=== PATIENT | male | born 1955 | race Caucasian/White ===

== ENCOUNTER → 2018-07-12 | Outpatient (CLI) | payer OTHER ==
[2018-07-12 13:48] LABS: Blood Urea Nitrogen 15 mg/dL (9-20)
--- NOTE | 2018-07-12 14:44 | CT ---
EXAMINATION TYPE: CT angio chest DATE OF EXAM: 07/12/2018 COMPARISON: None HISTORY: Thoracic aortic aneurysm. CT DLP: 268 mGycm CONTRAST: CTA thoracic aorta with 3-D reconstruction is performed and with IV Contrast, patient injected with 1 00 mL of Isovue 370. Contrast CTA of the thoracic aorta was performed from the lung apex through the upper abdomen. 3D re construction imaging obtained at a separate workstation. CT Chest: THORACIC AORTA: No evidence for thoracic aortic aneurysm. Mild atheromatous changes seen. There is n o evidence for dissection or periaortic collection. LUNGS: The lungs are clear and free of infiltrate or atelectasis. No pulmonary nodule or mass is det ected. No pleural effusion or CT evidence of interstitial lung disease. MEDIASTINUM: No evidence for mediastinal hematoma. The heart is not enlarged. No evidence for med iastinal mass or adenopathy. HILAR STRUCTURES: No evidence for mass. No hilar adenopathy is appreciated. OTHER: No significant abnormality. IMPRESSION- 1. No evidence for thoracic aortic.
== END | disposition home or self-care (01) ==
LOC: RADCTMAIN 12:59
PROVIDERS: ATTEND Nurse Practitioner Acute Care
DX: I71.2 Thoracic aortic aneurysm, without rupture (principal)
CPT/HCPCS: 82565; 84520; 71275; 36415; Q9967

== ENCOUNTER → 2019-09-24 | Outpatient (CLI) | payer OTHER ==
--- NOTE | 2019-09-24 11:18 | CTL ---
EXAMINATION TYPE: CT Low Dose Lung DATE OF EXAM ORDERED: 09/24/2019 HISTORY: . Lung cancer screening CT DLP: [address] CTDI: 2.9 mGy Automated exposure control for dose reduction was used. SCREENING VISIT: Initial COMPARISON: CTA 07/12/2018 TECHNIQUE: Low dose computed tomography scan was performed through the chest at 1 mm thick sections a nd reconstructed images in the coronal plane at [address] DIAGNOSTIC QUALITY: Satisfactory FINDINGS: LUNG NODULES: None. LUNGS: COPD: Severity: None Fibrosis: Severity: None Lymph nodes: None Other findings: None RIGHT PLEURAL SPACE: Effusion: None Calcification: None Thickening: None Pneumothorax: None LEFT PLEURAL SPACE: Effusion: None Calcification: None Thickening: None Pneumothorax: None HEART: Heart Size: Normal Coronary calcification: Mild Pericardial effusion: None OTHER FINDINGS: Upper abdomen: Postsurgical changes right nephrectomy. Bony thorax: Normal Supraclavicular region: Normal Other: Ascending thoracic aorta at the level the main pulmonary artery measures 3.7 cm. The main pul monary artery at the bifurcation measures 2.6 cm. IMPRESSION: 1. Negative CT chest FOLLOW UP CT CHEST RECOMMENDATION: Low dose screening in [address] LUNG RAD: 1
== END | disposition home or self-care (01) ==
LOC: RADCTMAIN 08:12
DX: Z12.2 Encounter for screening for malignant neoplasm of respiratory organs (principal); F17.210 Nicotine dependence, cigarettes, uncomplicated

== ENCOUNTER 2020-12-29 13:22 | Emergency (ER) | payer OTHER, MEDICARE ==
[2020-12-29 13:41] VITALS: TEMP 97.8
[2020-12-29] MEDS ORDERED: AMOXIC-POT CLAV 875MG STARTER PACK 2 TAB BTL PO STA (16:50)
--- NOTE | 2020-12-29 16:56 | ED ---
General Adult HPI - General Chief complaint: Skin/Abscess/Foreign Body Stated complaint: R side cheek pus inside mouth Time Seen by Provider: 12/29/20 16:43 Source: patient, RN notes reviewed, old records reviewed Mode of arrival: ambulatory Limitations: no limitations - History of Present Illness Initial comments: 65-year-old male with right facial swelling, tooth pain. Symptoms haven't present for 2 days. Patient has no systemic symptoms. No fever. He's had a similar episode to this in the past which responded well to antibiotics. Is able to eat and drink. He did report some purulent drainage from his right upper molar. Patient denies difficulty breathing or difficulty eating. - Related Data Previous Rx's Medication Instructions Recorded Amoxicillin/Potassium Clav 1 tab PO Q12HR 14 Days #28 tab 12/29/20 [Augmentin 875-125 Tablet] Allergies Allergy/AdvReac Type Severity Reaction Status Date / Time hydromorphone [From Dilaudid] Allergy Anaphylaxis Verified 12/29/20 13:41 Review of Systems ROS Statement: Those systems with pertinent positive or pertinent negative responses have been documented in the HPI. ROS Other: All systems not noted in ROS Statement are negative. Past Medical History Past Medical History: Hyperlipidemia, Hypertension, Renal Disease Additional Past Medical History / Comment(s): chronic neck and back pain History of Any Multi-Drug Resistant Organisms: None Reported Additional Past Surgical History / Comment(s): kidney removed Past Psychological History: No Psychological Hx Reported Smoking Status: Current every day smoker Past Alcohol Use History: Occasional Past Drug Use History: None Reported General Exam Limitations: no limitations General appearance: alert, in no apparent distress Head exam: Present: atraumatic, normocephalic Eye exam: Present: normal appearance, PERRL ENT exam: Present: other (Minimal right upper or facial swelling. No fluctuance or induration. There is a molar on the upper right with a abscess which is freely draining. There is tenderness to percussion over this tooth.) Neck exam: Present: normal inspection. Absent: tenderness, meningismus Respiratory exam: Present: normal lung sounds bilaterally. Absent: respiratory distress Cardiovascular Exam: Present: regular rate, normal rhythm GI/Abdominal exam: Present: soft. Absent: distended, tenderness Extremities exam: Present: normal inspection, normal capillary refill. Absent: pedal edema Neurological exam: Present: alert, oriented X3, CN II-XII intact. Absent: motor sensory deficit Skin exam: Present: warm, dry, intact. Absent: cyanosis, diaphoretic Course Vital Signs 12/29/20 13:37 Temperature 97.8 F Pulse Rate 91 Respiratory 20 Rate Blood Pressure 150/98 O2 Sat by Pulse 96 Oximetry Medical Decision Making - Medical Decision Making 65-year-old male with right upper molar tooth abscess, facial swelling. Patient is well-appearing, no trismus. No fever. He does have a freely draining apical abscess in the right upper molar. There is some facial cellulitis, no drainable abscess within the soft tissue of the cheek itself. Patient started on Augmentin and he will follow-up with his dentist. He is given strict return parameters. Disposition Clinical Impression: Abscessed tooth, Facial cellulitis Disposition: HOME SELF-CARE Condition: Good Instructions (If sedation given, give patient instructions): Dental Abscess (ED) Additional Instructions: Please return with development of fever, worsening symptoms. Please follow up with your dentist. Prescriptions: Amoxicillin/Potassium Clav [Augmentin 875-125 Tablet] 1 tab PO Q12HR 14 Days #28 tab Is patient prescribed a controlled substance at d/c from ED?: No Referrals: [facility],Clinic [Primary Care Provider] - 1-2 days Time of Disposition: 16:53
[2020-12-29 17:10] VITALS: BP 141/79; PULSE 79; RESP 18
== END 2020-12-29 17:09 | disposition home or self-care (01) ==
LOC: EC 13:22
DX: K04.7 Periapical abscess without sinus (principal); L03.211 Cellulitis of face; I10 Essential (primary) hypertension; E78.5 Hyperlipidemia, unspecified; F17.200 Nicotine dependence, unspecified, uncomplicated
CPT/HCPCS: 99283

== ENCOUNTER → 2021-04-23 | Outpatient (CLI) | payer OTHER ==
--- NOTE | 2021-04-23 11:58 | CTL ---
EXAMINATION TYPE: CT Low Dose Lung DATE OF EXAM ORDERED: 04/23/2021 HISTORY: 65-year-old male Personal history of tobacco use. Lung cancer screening CT DLP: 101.[address] CTDI: 2.8 mGy Automated exposure control for dose reduction was used. SCREENING VISIT: One and a half years from prior screening COMPARISON: 09/24/2019 TECHNIQUE: Low dose computed tomography scan was performed through the chest with coronal and sagitta l reconstructions. CT DIAGNOSTIC QUALITY: Satisfactory FINDINGS: Heart normal size without pericardial effusion. Scattered three-vessel coronary calcifications are pr esent. Ascending aorta ectatic and 3.8 cm, unchanged. Bovine configuration to the aortic arch. There is dire ct takeoff of the left vertebral artery directly from the aortic arch. Ectatic lower descending thora cic aorta 2.6 cm. Stable scattered nonenlarged mediastinal lymph nodes. Mild centrilobular emphysema. Mild diffuse bronchial wall thickening. There is strandy atelectasis o r scarring in the lower lungs. Some scattered mild paraseptal emphysema also noted. No consolidation or pleural effusion. Stable 2 mm subpleural pulmonary nodule anterior right upper lobe, axial image 60. Some focal endobronchial opacification within the posterior segment right upper lobe bronchus, axial image 106 measuring 7 mm. No consolidation or pleural effusion. Surgical clips at the right nephrectomy bed. Bones: Stable mild degenerative disc disease and endplate Schmorl's nodes lower thoracic spine. IMPRESSION: 1. Lungs RADS Category 4A ( Probably suspicious, 5-15% chance of malignancy). New 7 mm endobronchial nodule posterior segment right upper lobe bronchus. This may represent an area of mucous plugging. Sh ort interval follow-up recommended to reassess and exclude a small early endobronchial lesion. 2. COPD with mild emphysema. CT LUNG RAD AND CT CHEST RECOMMENDATION: Lung-Rad 4A Suspicious: Follow-up 3 month LDCT or PET/CT may be used when there is a > 8 mm solid component.
== END | disposition home or self-care (01) ==
LOC: RADCTMAIN 07:10
DX: Z12.2 Encounter for screening for malignant neoplasm of respiratory organs (principal); J44.9 Chronic obstructive pulmonary disease, unspecified; J43.9 Emphysema, unspecified
CPT/HCPCS: 71271

== ENCOUNTER → 2021-07-20 | Outpatient (CLI) | payer OTHER ==
[2021-07-20 12:34] LABS: African American GFR (CKD) >90 (>60 ml/min/1.73 sqM); Blood Urea Nitrogen 16 mg/dL (9-20); Non-African American GFR(CKD) 88 (>60 ml/min/1.73 sqM)
--- NOTE | 2021-07-20 14:01 | CT ---
EXAMINATION TYPE: CT chest w con DATE OF EXAM: 07/20/2021 COMPARISON: Low-dose lung screening CT April 23, 2021 and older CTs HISTORY: Previous abnormal exam lung stephens CT DLP: 309.6 mGycm. Automated Exposure Control for Dose Reduction was Utilized. TECHNIQUE: CT scan of the thorax is performed following with IV Contrast, patient injected with 100 ml mL of Isovue 300. FINDINGS: LUNGS: Mild underlying emphysematous changes redemonstrated. Interval clearance of 7 mm nodular opac ity posterior right upper lung bronchus axial image 25 likely reflecting mucous plugging given the in terval complete resolution. No new greater than 5 mm pulmonary nodules or masses. Mild bibasilar line ar scarring and/or atelectasis. There is no pleural effusion or pneumothorax seen. The tracheobronch ial tree is patent. MEDIASTINUM: There are no greater than 1 cm hilar or mediastinal lymph nodes. No cardiomegaly or pe ricardial effusion is seen. 4 vessel origin from aortic arch which is normal variant. OTHER: Right kidney suspected surgically absent. Exaggerated thoracic kyphosis with mild multilevel s purring. IMPRESSION: Interval resolution of 7 mm endobronchial lesion consistent with resolved mucous plugging . Mild emphysematous change without acute pulmonary process or suspicious greater than 5 mm pulmonary nodule.
== END | disposition home or self-care (01) ==
LOC: RADCTMAIN 11:49
PROVIDERS: ATTEND Internal Medicine
DX: R91.8 Other nonspecific abnormal finding of lung field (principal)
CPT/HCPCS: 82565; 84520; 71260; 36415; Q9967

== ENCOUNTER 2021-12-08 08:56 | Emergency (ER) | payer MEDICARE, OTHER ==
[2021-12-08 09:12] VITALS: BP 175/96; PULSE 76; RESP 18; TEMP 97.2
--- NOTE | 2021-12-08 09:50 | ED ---
General Adult HPI - General Chief complaint: Skin/Abscess/Foreign Body Stated complaint: Rash Time Seen by Provider: 12/08/21 09:13 Source: patient, RN notes reviewed Mode of arrival: ambulatory Limitations: no limitations - History of Present Illness Initial comments: 65-year-old male presented to emergency department with chief complaint for rash. Patient states that the rash started several days ago. He states it started in his legs has spread diffusely states is very itchy worse when he gets warmer lays in his bed. He states is small bumps over his extremities, hands patient states that he's been taking Benadryl with no relief he was given steroid cream which has not helped he states it's too diffuse. - Related Data Previous Rx's Medication Instructions Recorded Amoxicillin/Potassium Clav 1 tab PO Q12HR 14 Days #28 tab 12/29/20 [Augmentin 875-125 Tablet] Permethrin 5% Cream [Elimite] 1 applic TOPICAL ONCE #60 gram 12/08/21 hydrOXYzine HCL [Atarax] 25 mg PO TID PRN #20 tab 12/08/21 predniSONE 50 mg PO DAILY #5 tab 12/08/21 Allergies Allergy/AdvReac Type Severity Reaction Status Date / Time hydromorphone [From Dilaudid] Allergy Anaphylaxis Verified 12/08/21 09:12 Review of Systems ROS Statement: Those systems with pertinent positive or pertinent negative responses have been documented in the HPI. ROS Other: All systems not noted in ROS Statement are negative. Past Medical History Past Medical History: Hyperlipidemia, Hypertension, Renal Disease Additional Past Medical History / Comment(s): chronic neck and back pain History of Any Multi-Drug Resistant Organisms: None Reported Additional Past Surgical History / Comment(s): kidney removed Past Psychological History: No Psychological Hx Reported Smoking Status: Current every day smoker Past Alcohol Use History: Occasional Past Drug Use History: None Reported General Exam Limitations: no limitations General appearance: alert, in no apparent distress Head exam: Present: atraumatic, normocephalic, normal inspection Eye exam: Present: normal appearance, PERRL, EOMI. Absent: scleral icterus, conjunctival injection, periorbital swelling ENT exam: Present: normal exam, normal oropharynx, mucous membranes moist Neck exam: Present: normal inspection, full ROM. Absent: tenderness, meningismus, lymphadenopathy Respiratory exam: Present: normal lung sounds bilaterally. Absent: respiratory distress, wheezes, rales, rhonchi, stridor Cardiovascular Exam: Present: regular rate, normal rhythm, normal heart sounds. Absent: systolic murmur, diastolic murmur, rubs, gallop, clicks Neurological exam: Present: alert, oriented X3, CN II-XII intact Skin exam: Present: warm, dry, intact, normal color, rash (Diffuse over his torso, extremities small erythematous slightly raised papules, excoriations diffusely) Course Vital Signs 12/08/21 09:08 Temperature 97.2 F L Pulse Rate 76 Respiratory 18 Rate Blood Pressure 175/96 O2 Sat by Pulse 96 Oximetry Medical Decision Making - Medical Decision Making Patient has some underlying dermatitis and may root related to ALLERGIC though patient is concerned about scabies. Patient provided scabies treatment, will be given steroids, Atarax. Return parameters were discussed. Disposition Clinical Impression: Dermatitis Disposition: HOME SELF-CARE Condition: Stable Instructions (If sedation given, give patient instructions): Dermatitis (ED) Additional Instructions: Please return to the Emergency Department if symptoms worsen or any other concerns. Prescriptions: hydrOXYzine HCL [Atarax] 25 mg PO TID PRN #20 tab PRN Reason: Itching Permethrin 5% Cream [Elimite] 1 applic TOPICAL ONCE #60 gram predniSONE 50 mg PO DAILY #5 tab Is patient prescribed a controlled substance at d/c from ED?: No Referrals: [facility],Clinic [Primary Care Provider] - 1-2 days Time of Disposition: 09:49
== END 2021-12-08 10:06 | disposition home or self-care (01) ==
LOC: EC 08:56
DX: L30.9 Dermatitis, unspecified (principal); I10 Essential (primary) hypertension; F17.200 Nicotine dependence, unspecified, uncomplicated; Z88.5 Allergy status to narcotic agent
CPT/HCPCS: 99282

== ENCOUNTER 2021-12-14 09:12 | Emergency (ER) | payer MEDICARE, OTHER ==
[2021-12-14 09:17] VITALS: PULSE 86; RESP 18; TEMP 97.1
[2021-12-14] MEDS ORDERED: hydrOXYzine HCL 25 MG TAB PO STA (09:28)
[2021-12-14] MEDS ORDERED: predniSONE 20 MG TAB PO STA (09:29)
--- NOTE | 2021-12-14 09:34 | ED ---
General Adult HPI - General Chief complaint: Skin/Abscess/Foreign Body Stated complaint: Revisit/Rash Time Seen by Provider: 12/14/21 09:17 Source: patient, RN notes reviewed, old records reviewed Mode of arrival: ambulatory - History of Present Illness Initial comments: Patient is a 65-year-old male who returns to the emergency department due to a rash which she suspects is scabies. Was seen last week for similar symptoms. Medications he was sent home on did help, maybe more manageable. He states he did wash most of the clothing and linens in his house but not all the furniture carpet. Is uncertain where it came from. States it is worse today. He ran out of the medications on Monday. He presents seeking additional medications at this time. Has not yet followed up with his PCP. Denies any fevers, cough, chest pain, abdominal pain, nausea, vomiting. His no difficulty breathing or swallowing. Does have a history of hypertension take his medications this mor denys. States that the rash is over his chest and back. It is also on his legs. States it is very itchy. No fevers or sick contacts. No other acute complaints at this time. - Related Data Previous Rx's Medication Instructions Recorded Amoxicillin/Potassium Clav 1 tab PO Q12HR 14 Days #28 tab 12/29/20 [Augmentin 875-125 Tablet] Permethrin 5% Cream [Elimite] 1 applic TOPICAL ONCE #60 gram 12/08/21 hydrOXYzine HCL [Atarax] 25 mg PO TID PRN #20 tab 12/08/21 predniSONE 50 mg PO DAILY #5 tab 12/08/21 Permethrin 5% Cream [Elimite] 1 applic TOPICAL ONCE #60 gm 12/14/21 hydrOXYzine HCL [Atarax] 25 mg PO TID PRN 14 Days #42 tab 12/14/21 predniSONE [Deltasone] 40 mg PO DAILY 5 Days #10 tab 12/14/21 Allergies Allergy/AdvReac Type Severity Reaction Status Date / Time hydromorphone [From Dilaudid] Allergy Anaphylaxis Verified 12/14/21 09:17 Review of Systems ROS Statement: Those systems with pertinent positive or pertinent negative responses have been documented in the HPI. Review of Systems: CONST: Denies fever EYES: Denies blurry vision ENT: Denies nasal congestion C/V: Denies Chest pain RESP: Denies shortness of breath GI: Denies abdominal pain : Denies dysuria SKIN: Endorses rash MSK: Denies joint pain. NEURO: Denies headache ROS Other: All systems not noted in ROS Statement are negative. Past Medical History Past Medical History: Hyperlipidemia, Hypertension, Renal Disease Additional Past Medical History / Comment(s): chronic neck and back pain History of Any Multi-Drug Resistant Organisms: None Reported Additional Past Surgical History / Comment(s): kidney removed Past Psychological History: No Psychological Hx Reported Smoking Status: Current every day smoker Past Alcohol Use History: Occasional Past Drug Use History: None Reported General Exam - General Exam Comments Initial Comments: General: Appears in no acute distress. HEAD: Normal with no signs of head trauma. EYES: EOMI ENT: Hearing grossly intact. No stridor. No intraoral swelling. RESPIRATORY:. Breath sounds bilaterally. No wheezing. C/V: Regular rate and rhythm. S1 and S2 auscultated. Peripheral pulses 2+ and intact. ABD: Abd is soft, nontender, nondistended EXT: No obvious deformity. SKIN: Patient does have a maculopapular lesions with excoriations over his trunk, extremities. There appeared to be scabies-like in nature. No induration or erythema to suggest cellulitis or skin infection. Nondermatomal distribution. NEURO: Alert and oriented 4. No focal deficits. Course Vital Signs 12/14/21 12/14/21 09:15 09:28 Temperature 97.1 F L Pulse Rate 86 Respiratory 18 Rate Blood Pressure 196/98 174/104 O2 Sat by Pulse 98 99 Oximetry Medical Decision Making - Medical Decision Making Based on the patient's presentation and exam, I do believe he is experiencing continuation of his scabies-like rash. He is requesting refills on medications which I will provide. I also discussed with him the importance of following up with his PCP, as well as washing all clothing as well as all furniture and carpeting. I also recommended that all members of the house do the same. He was in agreement this plan. He'll be provided with a dose of Atarax and prednisone here as well as a prescription for Atarax, prednisone, permethrin. He'll be given a refill for the permethrin as well. He was in agreement with this plan. I instructed him to follow up with his PCP within the next few days. I do not believe that laboratory studies or imaging are required at this time. Patient is stating that the cream helped significantly, and that symptoms all returned when he ran out of the cream on Monday. Patient was hypertensive initially upon arrival, however afterwards did have improvement in his blood pressure. He has no symptoms and therefore is experiencing asymptomatic hypertension. Did not miss any doses of his antihypertensive medications. I counseled him on the importance of taking his blood pressure medications and he was in agreement. I answered all questions that he had. Patient will be discharged home in fair condition. I will provide the patient with a prescription for prednisone, Atarax, permethrin cream. I instructed the patient to follow up with their PCP in the next 3 days. I explained that the patient should return to the emergency department if they experience any worsening symptoms. Strict return precautions were discussed with the patient. The patient expressed understanding of these instructions. I answered all questions that the patient had. The patient was discharged home in fair condition with their prescriptions and follow up information. Disposition Clinical Impression: Rash, Scabies Disposition: HOME SELF-CARE Condition: Fair Instructions (If sedation given, give patient instructions): Scabies (ED) Prescriptions: hydrOXYzine HCL [Atarax] 25 mg PO TID PRN 14 Days #42 tab PRN Reason: Itching predniSONE [Deltasone] 40 mg PO DAILY 5 Days #10 tab Permethrin 5% Cream [Elimite] 1 applic TOPICAL ONCE #60 gm Is patient prescribed a controlled substance at d/c from ED?: No Referrals: [facility],Clinic [Primary Care Provider] - 1-2 days
[2021-12-14 09:35] VITALS: BP 174/104
== END 2021-12-14 10:15 | disposition home or self-care (01) ==
LOC: EC 09:12
DX: B86 Scabies (principal); I10 Essential (primary) hypertension; E78.5 Hyperlipidemia, unspecified; F17.200 Nicotine dependence, unspecified, uncomplicated; Z79.899 Other long term (current) drug therapy
CPT/HCPCS: 99282; J7512

== ENCOUNTER 2022-01-06 14:47 | Emergency (ER) | payer MEDICARE, OTHER ==
[2022-01-06 15:10] VITALS: RESP 18; TEMP 97.3
[2022-01-06] MEDS ORDERED: hydrOXYzine HCL 25 MG TAB PO STA (17:37)
[2022-01-06] MEDS ORDERED: predniSONE 50 MG TAB PO STA (17:37)
--- NOTE | 2022-01-06 17:42 | ED ---
General Adult HPI - General Chief complaint: Recheck/Abnormal Lab/Rx Stated complaint: Revisit-skin irritation Time Seen by Provider: 01/06/22 16:51 Source: patient Mode of arrival: ambulatory Limitations: no limitations - History of Present Illness Initial comments: This 66-year-old male who was initially diagnosed with scabies presents emergency Department with itching rash 1 month. Patient states he was seen here 2 times at the end of November and diagnosed with scabies and given medication and states the medication does seem to help until he runs out of it and then symptoms began to come back. Patient states he is still having intense itching when he does not have the hydroxyzine at home. Patient states he did try to follow up with his primary care provider, however they did not see scabies infections in the office. Patient here requesting more medications and dermatology follow-up. Patient states the rash on his body has not changed much over the last month, however he states that it is more itchy now that he does not have any cream or itching medication. Patient states he did used the permethrin cream as directed along with taking prednisone and hydroxyzine. Patient states he has washed all clothes and recently began to sleep on a different mattress that was on his bedroom. Patient denies having any bedbugs or any other bugs in his house. Patient denies any chest pain, shortness of breath, abdominal pain, nausea, vomiting, change in vision, headaches, dizziness, trouble swallowing, change in bowel or bladder, change in appetite, lightheadedness, dizziness. - Related Data Previous Rx's Medication Instructions Recorded Amoxicillin/Potassium Clav 1 tab PO Q12HR 14 Days #28 tab 12/29/20 [Augmentin 875-125 Tablet] Permethrin 5% Cream [Elimite] 1 applic TOPICAL ONCE #60 gram 12/08/21 hydrOXYzine HCL [Atarax] 25 mg PO TID PRN #20 tab 12/08/21 predniSONE 50 mg PO DAILY #5 tab 12/08/21 Permethrin 5% Cream [Elimite] 1 applic TOPICAL ONCE #60 gm 12/14/21 hydrOXYzine HCL [Atarax] 25 mg PO TID PRN 14 Days #42 tab 12/14/21 predniSONE [Deltasone] 40 mg PO DAILY 5 Days #10 tab 03/29/22 Permethrin 5% Cream [Elimite] 1 applic TOPICAL ONCE #60 gm 01/06/22 hydrOXYzine HCL [Atarax] 25 mg PO TID PRN #42 tab 01/06/22 predniSONE 50 mg PO DAILY #5 tab 01/06/22 Allergies Allergy/AdvReac Type Severity Reaction Status Date / Time hydromorphone [From Dilaudid] Allergy Anaphylaxis Verified 01/06/22 15:10 Review of Systems ROS Statement: Those systems with pertinent positive or pertinent negative responses have been documented in the HPI. ROS Other: All systems not noted in ROS Statement are negative. Past Medical History Past Medical History: Hyperlipidemia, Hypertension, Renal Disease Additional Past Medical History / Comment(s): chronic neck and back pain History of Any Multi-Drug Resistant Organisms: None Reported Additional Past Surgical History / Comment(s): kidney removed Past Psychological History: No Psychological Hx Reported Smoking Status: Current every day smoker Past Alcohol Use History: Occasional Past Drug Use History: None Reported General Exam Limitations: no limitations General appearance: alert, in no apparent distress Head exam: Present: atraumatic, normocephalic, normal inspection Eye exam: Present: normal appearance, PERRL, EOMI. Absent: scleral icterus, conjunctival injection, periorbital swelling Pupils: Present: normal accommodation ENT exam: Present: normal exam, mucous membranes moist Neck exam: Present: normal inspection, full ROM. Absent: tenderness, meningismus, lymphadenopathy Respiratory exam: Present: normal lung sounds bilaterally. Absent: respiratory distress, wheezes, rales, rhonchi, stridor Cardiovascular Exam: Present: regular rate, normal rhythm, normal heart sounds. Absent: systolic murmur, diastolic murmur, rubs, gallop, clicks GI/Abdominal exam: Present: soft, normal bowel sounds. Absent: distended, te nderness, guarding, rebound, rigid Extremities exam: Present: normal inspection (Patient with maculopapular patches over his chest, abdomen, back and extremities that exhibit excoriations. Patches do renard. No induration or warmth to suggest cellulitis or infection.), full ROM, normal capillary refill. Absent: tenderness, pedal edema, joint swelling, calf tenderness Back exam: Present: normal inspection (Patient with maculopapular patches over his chest, abdomen, back and extremities that exhibit excoriations. Patches do renard when pressed. No induration or warmth to suggest cellulitis or infection.), full ROM. Absent: CVA tenderness (R), CVA tenderness (L), paraspinal tenderness, vertebral tenderness Neurological exam: Present: alert, oriented X3, CN II-XII intact Psychiatric exam: Present: normal affect, normal mood Skin exam: Present: warm, dry, intact, normal color, rash (Patient with maculopapular patches over his chest, abdomen, back and extremities with excoriations. Patches do renard to palpation. No induration or warmth to suggest cellulitis or infection.) Course Vital Signs 01/06/22 15:06 Temperature 97.3 F L Pulse Rate 91 Respiratory 18 Rate Blood Pressure 135/92 O2 Sat by Pulse 96 Oximetry Medical Decision Making - Medical Decision Making This 66-year-old male was been diagnosed with scabies in the last month presents to the emergency department with maculopapular patches over his chest, abdomen, back and extremities that exhibit excoriations that he states has been present for about a month. Patient given hydroxyzine, Pepcid and prednisone in the emergency department. Prescription for hydroxyzine, prednisone and permethrin cream prescribed to patient. Follow up contact information with physician office secretary provided to patient which I instructed him to call tomorrow morning and schedule earliest appointment. Instructed patient to follow-up with his primary care provider. Patient verbally agreed to plan and stated he would call the physician office secretary tomorrow morning when they open. Strict return precautions were discussed. Patient verbally. Pain. Patient sent home in stable condition. Case discussed in detail with my attending, Dr. Rachel who also saw and evaluated patient. Disposition Clinical Impression: History of scabies, Rash Disposition: HOME SELF-CARE Condition: Stable Instructions (If sedation given, give patient instructions): Scabies (ED) Additional Instructions: Please take medications as directed. Call physician office secretary tomorrow morning to schedule an appointment as soon as possible. Return to the emergency department with any new, worsening, or concerning symptoms. Follow-up with primary care in next 1-2 days. Prescriptions: hydrOXYzine HCL [Atarax] 25 mg PO TID PRN #42 tab PRN Reason: Itching Permethrin 5% Cream [Elimite] 1 applic TOPICAL ONCE #60 gm predniSONE 50 mg PO DAILY #5 tab Is patient prescribed a controlled substance at d/c from ED?: No Referrals: [facility] [Primary Care Provider] - 1-2 days Veronica Oliva MD [STAFF PHYSICIAN] - 1-2 days Reena Oliva MD [STAFF PHYSICIAN] - 1-2 days Jewell Matson MD [REFERRING] - 1-2 days Time of Disposition: 18:02
[2022-01-06] MEDS ORDERED: FAMOTIDINE 20 MG TAB PO STA (18:03)
[2022-01-06 18:31] VITALS: BP 136/88; PULSE 82
== END 2022-01-06 18:11 | disposition home or self-care (01) ==
LOC: EC 14:47
DX: R21 Rash and other nonspecific skin eruption (principal); I10 Essential (primary) hypertension; F17.200 Nicotine dependence, unspecified, uncomplicated; Z86.19 Personal history of other infectious and parasitic diseases; Z88.5 Allergy status to narcotic agent; E78.5 Hyperlipidemia, unspecified
CPT/HCPCS: 99282

== ENCOUNTER 2022-08-18 11:50 | Emergency (ER) | payer OTHER ==
[2022-08-18 12:22] VITALS: TEMP 98.2
[2022-08-18] MEDS ORDERED: hydrOXYzine HCL 25 MG TAB PO STA (12:58)
[2022-08-18] MEDS ORDERED: methylPREDNISolone SOD SUCCI 125 MG/2 ML VIAL IM ONE (12:59)
[2022-08-18] MEDS ORDERED: PERMETHRIN 5% CREAM 60 GM TUBE TOPICAL ONE (13:01)
--- NOTE | 2022-08-18 13:26 | ED ---
General Adult HPI - General Chief complaint: Skin/Abscess/Foreign Body Stated complaint: scabies Time Seen by Provider: 08/18/22 12:28 Source: patient Mode of arrival: ambulatory Limitations: no limitations - History of Present Illness Initial comments: [id number] male who presents to the emergency department with concern for scabies infection. Patient reports a rash mainly over his back that began about a week and a half ago. Patient states the rash has spread down his back and to a lesser extent, his legs. The rash is a chief. It is not painful. He cannot recall any new skin products, detergents, soaps. He denies recent contact with trees and other greenery. Patient is very adamant that this is a scabies infection. He does report a scabies infection last year. I did review this documentation. At the time patient was treated for possible scabies. He did return to the emergency department twice that month for continued rash. 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 Patient denies fever, chills, upper respiratory symptoms, nausea, vomiting, shortness of breath, throat swelling. - Related Data Previous Rx's Medication Instructions Recorded Amoxicillin/Potassium Clav 1 tab PO Q12HR 14 Days #28 tab 12/29/20 [Augmentin 875-125 Tablet] Permethrin 5% Cream [Elimite] 1 applic TOPICAL ONCE #60 gram 12/08/21 hydrOXYzine HCL [Atarax] 25 mg PO TID PRN #20 tab 12/08/21 predniSONE 50 mg PO DAILY #5 tab 12/08/21 Permethrin 5% Cream [Elimite] 1 applic TOPICAL ONCE #60 gm 12/14/21 hydrOXYzine HCL [Atarax] 25 mg PO TID PRN 14 Days #42 tab 12/14/21 predniSONE [Deltasone] 40 mg PO DAILY 5 Days #10 tab 12/14/21 Permethrin 5% Cream [Elimite] 1 applic TOPICAL ONCE #60 gm 01/06/22 hydrOXYzine HCL [Atarax] 25 mg PO TID PRN #42 tab 01/06/22 predniSONE 50 mg PO DAILY #5 tab 01/06/22 Permethrin 5% Cream [Elimite] 1 applic TOPICAL ONCE #60 gram 08/18/22 hydrOXYzine HCL [Atarax] 25 mg PO TID PRN #20 tab 08/18/22 predniSONE 50 mg PO DAILY #5 tab 08/18/22 Allergies Allergy/AdvReac Type Severity Reaction Status Date / Time hydromorphone [From Dilaudid] Allergy Anaphylaxis Verified 08/18/22 12:22 Review of Systems ROS Statement: Those systems with pertinent positive or pertinent negative responses have been documented in the HPI. ROS Other: All systems not noted in ROS Statement are negative. Past Medical History Past Medical History: Hyperlipidemia, Hypertension, Renal Disease Additional Past Medical History / Comment(s): chronic neck and back pain History of Any Multi-Drug Resistant Organisms: None Reported Additional Past Surgical History / Comment(s): kidney removed Past Psychological History: No Psychological Hx Reported Smoking Status: Current every day smoker Past Alcohol Use History: Occasional Past Drug Use History: None Reported General Exam Limitations: no limitations General appearance: alert, in no apparent distress Head exam: Present: atraumatic, normocephalic, normal inspection Respiratory exam: Present: normal lung sounds bilaterally. Absent: respiratory distress, wheezes, rales, rhonchi, stridor Cardiovascular Exam: Present: regular rate, normal rhythm, normal heart sounds. Absent: systolic murmur, diastolic murmur, rubs, gallop, clicks Neurological exam: Present: alert, oriented X3, CN II-XII intact Psychiatric exam: Present: normal affect, normal mood Skin exam: Present: warm, dry, intact, normal color, rash (Diffuse rash over the upper and lower back, and to a lesser extent, lower extremities. Several pa pules on erythematous base.) Course Vital Signs 08/18/22 08/18/22 12:19 13:44 Temperature 98.2 F Pulse Rate 72 75 Respiratory 16 18 Rate Blood Pressure 187/90 138/97 O2 Sat by Pulse 96 95 Oximetry Medical Decision Making - Medical Decision Making This is a 66-year-old presenting with dermatitis. It is unknown if patient is presenting with some type of allergic reaction however patient is very adamant that this is a scabies infection. Patient has appointment with his derma tologist tomorrow. Will treat for scabies infection with instruction to follow- up as planned. Dr. Feldman is my attending. Disposition Clinical Impression: Dermatitis, Pruritic rash Disposition: HOME SELF-CARE Condition: Good Instructions (If sedation given, give patient instructions): Contact Dermatitis (ED), Scabies (ED) Additional Instructions: Take medication as directed. Do not drink alcohol or operate machinery while taking hydroxyzine as it can make sleepy. Follow-up with dermatology tomorrow as planned. Return to the emergency department if you experience new, concerning, or worsening symptoms. Prescriptions: hydrOXYzine HCL [Atarax] 25 mg PO TID PRN #20 tab PRN Reason: Allergic Reaction Permethrin 5% Cream [Elimite] 1 applic TOPICAL ONCE #60 gram predniSONE 50 mg PO DAILY #5 tab Is patient prescribed a controlled substance at d/c from ED?: No Referrals: [facility]inic [Primary Care Provider] - 1-2 days
[2022-08-18 13:46] VITALS: BP 138/97; PULSE 75; RESP 18
== END 2022-08-18 13:45 | disposition home or self-care (01) ==
LOC: EC 11:50
DX: L30.8 Other specified dermatitis (principal); I12.9 Hypertensive chronic kidney disease with stage 1 through stage 4 chronic kidney disease, or unspecified chronic kidney disease; N18.9 Chronic kidney disease, unspecified; F17.200 Nicotine dependence, unspecified, uncomplicated; Z88.5 Allergy status to narcotic agent; Z79.899 Other long term (current) drug therapy
CPT/HCPCS: 99282; 96372; J2930

== ENCOUNTER 2022-10-05 09:31 | Emergency (ER) | payer OTHER ==
[2022-10-05] MEDS ORDERED: amLODIPine 10 MG TAB PO STA (09:48)
[2022-10-05 09:59] VITALS: TEMP 98.9
[2022-10-05 10:19] LABS: Basophils % (A) 1 %; Eosinophils # (A) 0.2 k/uL (0-0.7); Eosinophils % (A) 2 %; HCT 44.2 % (39.0-53.0); HGB 15.4 gm/dL (13.0-17.5); Lymphocytes # (A) 2.1 k/uL (1.0-4.8); Lymphocytes % (A) 31 %; MCH 32.1 pg (25.0-35.0); MCV 91.9 fL (80.0-100.0); Mean Platelet Volume 6.5; Monocytes # (A) 0.4 k/uL (0-1.0); Monocytes % (A) 6 %; Neutrophils # (A) 4.1 k/uL (1.3-7.7); Neutrophils % (A) 59 %; Platelet Count 240 k/uL (150-450); RBC 4.81 m/uL (4.30-5.90); RDW 11.6 % (11.5-15.5)
[2022-10-05 10:22] LABS: ALT 40 U/L (4-49); AST 32 U/L (17-59); African American GFR (CKD) >90 (>60 ml/min/1.73 sqM); Albumin 4.7 g/dL (3.5-5.0); Alkaline Phosphatase 55 U/L (38-126); Anion Gap 7 mmol/L; Blood Urea Nitrogen 15 mg/dL (9-20); Calcium 9.2 mg/dL (8.4-10.2); Carbon Dioxide 30 mmol/L (22-30); Chloride 101 mmol/L (98-107); Glucose 106 mg/dL (74-99); Magnesium 2.1 mg/dL (1.6-2.3); Non-African American GFR(CKD) 86 (>60 ml/min/1.73 sqM); Potassium 4.3 mmol/L (3.5-5.1); Sodium 138 mmol/L (137-145); Total Bilirubin 0.7 mg/dL (0.2-1.3); Total Protein 7.7 g/dL (6.3-8.2)
[2022-10-05 10:26] LABS: Partial Thromboplastin Time 23.6 sec (22.0-30.0); Prothrombin Time 10.5 sec (9.0-12.0)
--- NOTE | 2022-10-05 10:32 | XR ---
EXAMINATION TYPE: XR chest 2V DATE OF EXAM: 10/05/2022 10:05 AM COMPARISON: Chest radiographs from 08/28/2017 TECHNIQUE: XR chest 2V Frontal and lateral views of the chest. CLINICAL INDICATION:Male, 66 years old with history of Chest Pain; FINDINGS: Lungs/Pleura: There is flattening of the diaphragm with increased lucency of the lungs. No evidence o f pneumothorax, pleural effusion or focal consolidation. Pulmonary vascularity: Unremarkable. Heart/mediastinum: Cardiomediastinal silhouette is unremarkable. Musculoskeletal: No acute osseous pathology. IMPRESSION: 1. No acute cardiopulmonary disease process. 2. COPD changes.
--- NOTE | 2022-10-05 13:54 | ED ---
Chest Pain HPI - General Chief Complaint: Chest Pain Stated Complaint: chest pain, High BP Time Seen by Provider: 10/05/22 09:37 Source: patient Mode of arrival: ambulatory Limitations: no limitations - History of Present Illness Initial Comments: Patient complains of sharp chest pain. The pain is on the left side of the chest. Nothing makes it better or worse. He has taken no medicine for. He wasn't doing anything when it began. - Related Data Home Medications Medication Instructions Recorded Confirmed Albuterol Inhaler [Ventolin Hfa 1 puff INHALATION RT-QID PRN 10/05/22 10/05/22 Inhaler] Aspirin EC [Ecotrin Low Dose] 81 mg PO DAILY 10/05/22 10/05/22 Atorvastatin [Lipitor] 20 mg PO HS 10/05/22 10/05/22 Fluticasone Propion/Salmeterol 1 puff INHALATION RT-BID 10/05/22 10/05/22 [Fluticasone-Salmeterol 100-50] HYDROcodone/APAP 10-325MG [[place] 1 tab PO QID PRN 10/05/22 10/05/22 10-325] Triamcinolone 0.1% Cream [Kenalog 1 applicatio TOPICAL BID PRN 10/05/22 10/05/22 0.1% Cream] lisinopriL [Zestril] 5 mg PO BID 10/05/22 10/05/22 Previous Rx's Medication Instructions Recorded hydrOXYzine HCL [Atarax] 25 mg PO TID PRN 14 Days #42 tab 12/14/21 Allergies Allergy/AdvReac Type Severity Reaction Status Date / Time hydromorphone [From Dilaudid] Allergy Anaphylaxis Verified 10/05/22 10:57 Review of Systems ROS Statement: Those systems with pertinent positive or pertinent negative responses have been documented in the HPI. ROS Other: All systems not noted in ROS Statement are negative. EKG Findings - EKG Comments: EKG Findings:: Twelve-lead EKG shows ventricular rate 73 bpm, normal [place] interval and QRS complex, no ST elevation or depression, interpreted by me as normal sinus rhythm. Past Medical History Past Medical History: Hyperlipidemia, Hypertension, Renal Disease Additional Past Medical History / Comment(s): chronic neck and back pain History of Any Multi-Drug Resistant Organisms: None Reported Additional Past Surgical History / Comment(s): kidney removed Past Psychological History: No Psychological Hx Reported Smoking Status: Current every day smoker Past Alcohol Use History: Occasional Past Drug Use History: None Reported General Exam Limitations: no limitations General appearance: alert, in no apparent distress Head exam: Present: atraumatic, normocephalic, normal inspection Eye exam: Present: normal appearance, PERRL, EOMI. Absent: scleral icterus, conjunctival injection, periorbital swelling ENT exam: Present: normal exam, mucous membranes moist Neck exam: Present: normal inspection. Absent: tenderness, meningismus, lymphadenopathy Respiratory exam: Present: normal lung sounds bilaterally. Absent: respiratory distress, wheezes, rales, rhonchi, stridor Cardiovascular Exam: Present: regular rate, normal rhythm, normal heart sounds. Absent: systolic murmur, diastolic murmur, rubs, gallop, clicks GI/Abdominal exam: Present: soft, normal bowel sounds. Absent: distended, tenderness, guarding, rebound, rigid Extremities exam: Present: normal inspection, full ROM, normal capillary refill. Absent: tenderness, pedal edema, joint swelling, calf tenderness Back exam: Present: normal inspection Neurological exam: Present: alert, oriented X3, CN II-XII intact Psychiatric exam: Present: normal affect, normal mood Skin exam: Present: warm, dry, intact, normal color. Absent: rash Course Vital Signs 10/05/22 10/05/22 09:34 09:58 Temperature 97.9 F 98.9 F Pulse Rate 84 66 Respiratory 20 16 Rate Blood Pressure 180/100 O2 Sat by Pulse 97 96 Oximetry Chest Pain MDM - Core Measures AMI Core Measures Followed: Yes - [facility] Patient presents with chest pain. I'm concerned for acute coronary syndrome. Patient has no neurological symptoms. I have less concern for dissection or aneurysm. I considered a CT, however the patient's history and physical are not consistent with that. 1 view chest x-ray independently reviewed and read by me shows no pneumonia or pneumothorax. Laboratory studies are interpreted by me showing normal electrolytes and CBC. 2 serial troponins are both negative. I discussed the results the patient. I considered admission, however given the serial negative troponins and O believe it is indicated at this time. We have ruled out acute emergency. He is stable for discharge. Disposition Clinical Impression: Chest pain Disposition: HOME SELF-CARE Condition: Good Instructions (If sedation given, give patient instructions): Chest Pain (ED) Is patient prescribed a controlled substance at d/c from ED?: No Referrals: [facility],Clinic [Primary Care Provider] - 1-2 days
[2022-10-05 14:13] VITALS: BP 169/91; PULSE 61; RESP 18
== END 2022-10-05 14:15 | disposition home or self-care (01) ==
LOC: EC 09:31
DX: R07.89 Other chest pain (principal); I10 Essential (primary) hypertension; E78.5 Hyperlipidemia, unspecified; F17.200 Nicotine dependence, unspecified, uncomplicated; Z79.82 Long term (current) use of aspirin; Z88.5 Allergy status to narcotic agent; Z79.899 Other long term (current) drug therapy
CPT/HCPCS: 36415; 71046; 80053; 83735; 83880; 84484; 85025; 85379; 85610; 85730; 93005; 99285

== ENCOUNTER → 2023-11-03 | Outpatient (CLI) | payer OTHER ==
--- NOTE | 2023-11-03 09:36 | CTL ---
EXAMINATION TYPE: CT Low Dose Lung DATE OF EXAM: 11/03/2023 7:55 AM CLINICAL INDICATION:Male, 67 years old with history of F17.210 NICOTINE DEPENDENCE, CIGARETTES, UN; N icotine dependence, cigarettes, uncomplic , history of tobacco use. COMPARISON: None. TECHNIQUE: Multiple axial non-contrast scans were obtained from approximately the lung apices through the upper abdomen. Coronal and sagittal reformatted images were obtained. Low dose technique was uti lized. CT DLP: 83.39 mGycm, Automated exposure control for dose reduction was used. CT Contrast: Contrast used: None Oral contrast used: None FINDINGS: ======== Lack of intravenous contrast and low dose technique limits the evaluation of the vascular and soft ti ssue structures. LUNGS: No evidence of pulmonary fibrosis. No evidence of focal consolidation, pneumothorax or pleural effusion. Mild centrilobular emphysema changes are present. Nodules: RUL: None. RML: None. RLL: None. DEBORAH: None. LLL: None. AIRWAY: Patent and unremarkable. HEART: Size within normal limits. Scattered ulcerations of the coronary arteries. MEDIASTINUM: No gross evidence of adenopathy. VASCULATURE: No aortic aneurysm. MUSCULOSKELETAL: Mild disc degeneration changes are present throughout the thoracolumbar spine. SOFT TISSUES/LYMPH NODES: Unremarkable. LOWER NECK: No significant findings. UPPER ABDOMEN: Partially visualized surgical clips in the right renal fossa. IMPRESSION: 1. No pulmonary nodules. 2. Mild emphysema. CT LUNG RAD AND CT CHEST RECOMMENDATION: Lung-Rad 1 Negative: Continue annual screening with LDCT in 12 months. S Modifier (other clinically significant findings): None Recommend smoking cessation (if current smoker), or continuation of smoking cessation (if prior smoke r). Annual screening for lung cancer with low-dose computed tomography is recommended in adults ages 55 to 77 years who have a 30 pack-year smoking history and currently smoke or have quit within the pa st 15 years. Screening should be discontinued once a person has not smoked for 15 years or develops a health problem that substantially limits life expectancy or the ability or willingness to have curat jeanine lung surgery. Lung rads 2021 [email or web address]
== END | disposition home or self-care (01) ==
LOC: RADCTMAIN 07:30
PROVIDERS: ATTEND Internal Medicine
DX: Z12.2 Encounter for screening for malignant neoplasm of respiratory organs (principal); J43.2 Centrilobular emphysema; F17.210 Nicotine dependence, cigarettes, uncomplicated
CPT/HCPCS: 71271

== ENCOUNTER → 2024-12-13 | Outpatient (CLI) | payer OTHER ==
--- NOTE | 2024-12-13 12:18 | CTL ---
EXAMINATION TYPE: CT Low Dose Lung DATE OF EXAM ORDERED: 12/13/2024 COMPARISON: Low-dose lung scarring CT November 03, 2023 and older studies CLINICAL INDICATION: Male, 68 years old with history of Lung cancer screening; [facility], CURRENT SMOKER 1 PPD X50 YEARS., Lung cancer screening, History of Smoking/tobacco use. TECHNIQUE: Low dose computed tomography scan was performed through the chest at 1 mm thick sections a nd reconstructed images in multiple planes at 1 mm and [address] DLP: 115.[address] CTDI: 3.0 mGy Automated exposure control for dose reduction was used. CT DIAGNOSTIC QUALITY: Satisfactory FINDINGS: Nodules: A few tiny nodules are redemonstrated. For reference a stable 2 to 3 mm peripheral anterior right upper lobe nodule axial image 93. No new greater then 4 mm pulmonary nodules LUNGS: COPD: Severity: Mild to moderate Fibrosis: Severity: None Lymph nodes: None Other findings: None RIGHT PLEURAL SPACE: Effusion: None Calcification: None Thickening: None Pneumothorax: None LEFT PLEURAL SPACE: Effusion: None Calcification: None Thickening: None Pneumothorax: None HEART: Heart Size: Normal Coronary Calcification: Severe Pericardial Effusion: None OTHER FINDINGS: Upper abdomen: Surgical changes likely from right nephrectomy are partially imaged. Bony thorax: None Supraclavicular region: None Other: None IMPRESSION: No suspicious new or enlarging nodules. CT LUNG RAD AND CT CHEST RECOMMENDATION: Lung-Rad 2 Benign Appearance or Behavior: Continue annual sc reening with LDCT in 12 months. S Modifier (other clinically significant findings): S Severe three-vessel coronary artery calcification redemonstrated and should be correlated with additi onal cardiac risk factors. [facility], , 12/13/2024 12:16 PM
== END | disposition home or self-care (01) ==
LOC: RADCTMAIN 10:35
PROVIDERS: ATTEND Internal Medicine Pulmonary Disease
DX: Z12.2 Encounter for screening for malignant neoplasm of respiratory organs (principal); F17.210 Nicotine dependence, cigarettes, uncomplicated; J44.9 Chronic obstructive pulmonary disease, unspecified
CPT/HCPCS: 71271

== ENCOUNTER → 2024-12-23 | Outpatient (CLI) | payer OTHER ==
[2024-12-23 15:12] LABS: BUN/Creat Ratio 11.56 Ratio (12.00-20.00); Blood Urea Nitrogen 10.4 mg/dL (9.0-27.0); Calcium 9.7 mg/dL (8.7-10.3); Carbon Dioxide 27.1 mmol/L (21.6-31.8); Chloride 98 mmol/L (96-109); Glucose 88 mg/dL (70-110); Sodium 136 mmol/L (135-145)
[2024-12-23 15:23] LABS: MCH 31.4 pg (27.0-32.0); MCHC 33.3 g/dL (32.0-37.0); MCV 94.1 FL (80.0-97.0); Mean Platelet Volume 9.9 FL (9.5-12.2); NRBC Per 100 WBC 0 X 10*3/uL (0.00-0.01); Platelet Count 301 X 10*3/uL (140-440); RBC 4.78 X 10*6/uL (4.40-5.60); WBC 10.51 X 10*3/uL (4.50-10.00)
== END | disposition home or self-care (01) ==
LOC: LABWHC1 09:07
PROVIDERS: ATTEND Internal Medicine Cardiovascular Disease
DX: R06.02 Shortness of breath (principal)
CPT/HCPCS: 36415; 80048; 85027

== ENCOUNTER 2025-01-14 06:09 | Day surgery (SDC) | payer OTHER ==
[~2025-01-14 06:09] MED LIST: ALPRAZolam 0.25 MG TAB PO PRN; ALPRAZolam 0.5 MG TAB PO PRN; NITROGLYCERIN SL TABS 0.4 MG TAB SUBLINGUAL PRN
[2025-01-14 06:56] VITALS: TEMP 97.5
[2025-01-14] MEDS: ATORVASTATIN 80 MG TAB PO STA (07:02)
[2025-01-14] MEDS: SODIUM CHLORIDE 0.9% 1,000 ML in EMPTY BAG 1 BAG IV SCH (07:02)
[2025-01-14] MEDS: ASPIRIN 325 MG TAB PO STA (07:03)
[2025-01-14] MEDS: IV FLUID CONTINUATION 1,000 ML IV ONE (07:03)
[2025-01-14] MEDS: HEPARIN SODIUM,PORCINE 10,000 UNIT in SODIUM CHLORIDE 0.9% 1,000 ML IRRIGATION PRN (07:21)
[2025-01-14] MEDS: HEPARIN SODIUM,PORCINE (1 ML) 2,500 UNIT in SODIUM CHLORIDE 0.9% 250 ML IRRIGATION PRN (07:22)
[2025-01-14] MEDS: MIDAZOLAM 2 MG/2 ML VIAL IVP ONE (07:28)
[2025-01-14] MEDS: LIDOCAINE 1% INJ 10MG/ML (20 ML MDV) SQ ONE (07:31)
[2025-01-14] MEDS: VERAPAMIL SYRINGE (5 MG/10 ML) INTRAARTER ONE (07:34)
[2025-01-14] MEDS: IOPAMIDOL-370 100ML BTL INJ ONE (07:41)
[2025-01-14] MEDS ORDERED: RX INFO: IV CONTRAST WAS GIVEN 1 EACH MISC MISCELLANE PRN (09:07)
[2025-01-14] MEDS ORDERED: SODIUM CHLORIDE 0.9% 1,000 ML IV SCH (09:15)
--- NOTE | 2025-01-14 10:16 | CC ---
CARDIAC CATHETERIZATION REPORT INDICATION: Shortness of breath in a patient with coronary artery disease diagnosed on a CT scan. PROCEDURE NOTE: After obtaining informed consent, left heart catheterization and coronary angiogram were performed via the right radial artery using standard Jamie catheters. The patient tolerated the procedure well without any obvious immediate complications. The patient received moderate conscious sedation. Total sedation time was 15 minutes. Right radial artery access was obtained using Seldinger technique, 6-Occitan sheath was placed. Catheters and wires were floated into the ascending aorta under fluoroscopic guidance. The patient received verapamil and heparin per protocol. FINDINGS: 1. Hemodynamics: Left ventricular end-diastolic pressure is 10 mm. There is no significant gradient across the aortic valve. 2. Left ventriculogram: Left ventriculogram is not performed. 3. Angiographic data: a.Right coronary artery: Right coronary artery is a large dominant vessel and is free of significant stenosis. b.Left main coronary artery: Appears calcified, but is free of significant disease, divides into left anterior descending coronary artery and circumflex coronary artery. c.LAD shows mild nonobstructive disease. Circumflex coronary artery is a large caliber OM branch that shows a 30% to 40% stenosis. CONCLUSION: 1. Mild nonobstructive CAD. 2. Normal left ventricular end-diastolic pressure. PLAN: The patient's shortness of breath seems noncardiac in origin. His management is going to be in the form of risk factor modification and optimal medical therapy. MMODL / IJN: [id number] /
[2025-01-14 17:24] VITALS: PULSE 56; RESP 18
[2025-01-14 17:31] VITALS: BP 124/68
== END 2025-01-14 12:02 | disposition home or self-care (01) ==
LOC: CATHCVL 06:09
PROVIDERS: ATTEND Internal Medicine Cardiovascular Disease
DX: I25.10 Atherosclerotic heart disease of native coronary artery without angina pectoris (principal); I10 Essential (primary) hypertension; E78.2 Mixed hyperlipidemia; Z72.0 Tobacco use; Z88.5 Allergy status to narcotic agent; Z79.82 Long term (current) use of aspirin; Z79.02 Long term (current) use of antithrombotics/antiplatelets; Z79.899 Other long term (current) drug therapy
CPT/HCPCS: 93458; 99152; C1894; J2250; J1644 ×3; J2003; Q9967